=== PATIENT | male | born 1995 | race Caucasian/White ===

== ENCOUNTER 2016-10-19 20:33 | Emergency (ER) | payer OTHER ==
--- NOTE | ~2016-10-19 | CR63 ---
[facility]. [facility] A Service of [facility] & [facility] / [facility] RADIOLOGY TEXT RESULTS PATIENT: KAVON HERNANDEZ LOCATION: SED : 95 UNIT #: [id number] AGE: [address]: Parth Simms SEX: M ORDER DR: [id number] [place] [id number] E MR#: [id number] Acc #: [id number] NAME: KAVON HERNANDEZ : 1995 SEX: M STUDY DATE/TIME: 10/19/2016 20:53 UNIT: SED ROOM: STUDY DESCRIPTION: CR Chest 2 View Attending Physician: Parth Simms P.A.-C. Ordering Physician: Parth Simms P.A.-C. MEDICAL IMAGING REPORT This report is preliminary unless electronic signature is present. EXAM PA and lateral chest HISTORY Chest pain and cough for 1 month. No injury. FINDINGS PA and lateral examination of the chest upright shows a good expansion of the parenchyma with a normal distribution of the pulmonary vascularity. There is no indication of congestion, effusion, infiltrate, tumor, or nodular density. The pleural reflections and diaphragmatic contours are normal. The cardiac silhouette and mediastinal anatomy is within normal limits. IMPRESSION Normal chest. Dictated by... Abdoul Dash M.D. THIS IS AN ELECTRONICALLY VERIFIED REPORT Abdoul Dash M.D. at 10/20/2016 3:15 PM DFL/psc TD: 10/20/2016 00:32 JOB #: [id number] MEDICAL IMAGING REPORT Page 1 of 1
--- NOTE | ~2016-10-19 | CR243 ---
[facility]. [facility] A Service of [facility] & [facility] RADIOLOGY TEXT RESULTS PATIENT: KAVON HERNANDEZ LOCATION: SED : 95 UNIT #: [id number] AGE: [address]: Parth Simms SEX: M ORDER DR: [id number] [place] [id number] E MR#: [id number] Acc #: [id number] NAME: KAVON HERNANDEZ : 1995 SEX: M STUDY DATE/TIME: 10/19/2016 20:53 UNIT: SED ROOM: STUDY DESCRIPTION: CR Thoracic Spine 3 Views Attending Physician: Parth Simms P.A.-C. Ordering Physician: Parth Simms P.A.-C. MEDICAL IMAGING REPORT This report is preliminary unless electronic signature is present. EXAM Thoracic spine 3 views HISTORY Back pain for 1 month. No injury. FINDINGS 3 views of the thoracic spine demonstrate very mild right upper thoracic curve measuring approximately 5 degrees. No fracture, disc space narrowing or subluxation. No abnormal sclerosis. IMPRESSION Mild right upper thoracic curve. No fracture. Dictated by... Abdoul Dash M.D. THIS IS AN ELECTRONICALLY VERIFIED REPORT Abdoul Dash M.D. at 10/20/2016 3:15 PM URBAN/cece TD: 10/20/2016 00:42 JOB #: [id number] MEDICAL IMAGING REPORT Page 1 of 1
--- NOTE | ~2016-10-19 | CR181 ---
[facility]. [facility] A Service of [facility] & [facility] / [facility] RADIOLOGY TEXT RESULTS PATIENT: KAVON HERNANDEZ LOCATION: SED : 95 UNIT #: [id number] AGE: [address]: Parth Simms SEX: M ORDER DR: [id number] [place] [id number] E MR#: [id number] Acc #: [id number] NAME: KAVON HERNANDEZ : 1995 SEX: M STUDY DATE/TIME: 10/19/2016 20:53 UNIT: SED ROOM: STUDY DESCRIPTION: CR Lumbar Spine 2 or 3 Views Attending Physician: Parth Simms P.A.-C. Ordering Physician: Parth Simms P.A.-C. MEDICAL IMAGING REPORT This report is preliminary unless electronic signature is present. EXAM Lumbar spine, 3 views HISTORY Back pain for 1 month. No injury. FINDINGS AP and lateral projections of the lumbar segment show good mineralization of both anterior and posterior elements. They are all anatomically normal without indication of fracture, dislocation, or malignant change of a sclerotic or lytic type. There is no congenital defect noted. The sacroiliac joints are normal. IMPRESSION Normal lumbar spine. Dictated by... Abdoul Dash M.D. THIS IS AN ELECTRONICALLY VERIFIED REPORT Abdoul Dash M.D. at 10/20/2016 3:15 PM DFL/psc TD: 10/20/2016 00:33 JOB #: [id number] MEDICAL IMAGING REPORT Page 1 of 1
[2016-10-19] MEDS ORDERED: IBUPROFEN (20:43)
== END 2016-10-19 21:58 | disposition home or self-care (01) ==
LOC: SED 20:33
DX: M54.5 Low back pain (principal); M54.6 Pain in thoracic spine; Z88.0 Allergy status to penicillin; Z88.2 Allergy status to sulfonamides; Z88.1 Allergy status to other antibiotic agents
CPT/HCPCS: 71020; 72072; 72100; 99284